=== PATIENT | female | born 1985 | race Caucasian/White ===

== ENCOUNTER 2021-10-06 19:07 | Inpatient (IN) | payer BC ==
[~2021-10-06 19:07] MED LIST: Bupivacaine 0.25% HCL 30 ML VIAL ONE; ePHEDrine Sulfate 50 MG/10 ML VIAL ONE
[2021-10-06 19:37] VITALS: BMI 48.4
[2021-10-06] MEDS ORDERED: Lidocaine 1% (PF) 30 ML VIAL SC PRN (20:36)
[2021-10-06] MEDS ORDERED: Diphenoxylate HCl/Atropine Tablet PO PRN (20:36)
[2021-10-06] MEDS ORDERED: hydrALAZINE 20 MG/ML VIAL SLOW IVP PRN (20:36)
[2021-10-06] MEDS ORDERED: HYDROcodone/Acetaminophen 5/325 mg Tablet PO PRN (20:36)
[2021-10-06] MEDS ORDERED: Misoprostol 200 MCG TAB PR PRN (20:36)
[2021-10-06] MEDS ORDERED: Ibuprofen 800 MG TAB PO PRN (20:36)
[2021-10-06] MEDS ORDERED: Methylergonovine 0.2 MG/ML VIAL IM PRN (20:36)
[2021-10-06] MEDS ORDERED: Acetaminophen 500 MG TAB PO PRN (20:36)
[2021-10-06] MEDS ORDERED: Butorphanol Tartrate 1 MG/ML VIAL SLOW IVP PRN (20:36)
[2021-10-06] MEDS ORDERED: Promethazine HCl 25 MG/ML VIAL IM PRN (20:36)
[2021-10-06] MEDS ORDERED: Ondansetron PF 4 MG/2 ML Vial IVP PRN (20:36)
[2021-10-06] MEDS ORDERED: Carboprost 250 MCG/ML AMP IM PRN (20:36)
[2021-10-06] MEDS ORDERED: Lactated Ringer's 1,000 ML IV SCH (20:45)
[2021-10-06] MEDS ORDERED: NS w/ Oxytocin 30 units 500 ML IV SCH ×2 (20:45)
[2021-10-06] MEDS ORDERED: Penicillin G Potassium 5 MILL.UNITS in Sodium Chloride 0.9% 100 ML IVPB SCH (20:45)
[2021-10-06 20:55] LABS: Hemoglobin 12.8 g/dL (12.0-15.5); Mean Corpuscular HGB CONC 34.5 g/dL (32.0-36.0); Mean Corpuscular Hemoglobin 31.1 pg (27.0-33.0); Mean Corpuscular Volume 90.3 fl (81.6-98.3); Mean Platelet Volume 10.5 fl (7.4-10.4); Platelet Count 203 10x3/uL (150-450); RBC Distribution Width 14.6 % (11.5-14.5); Red Blood Cell (RBC) Count 4.11 10x6/uL (3.90-5.03); White Blood Cell (WBC) Count 8.9 10x3/uL (3.5-10.5)
[2021-10-06 21:07] LABS: ALT (SGPT) 9 U/L (8-55); AST (SGOT) 13 U/L (5-34); Alkaline Phosphatase 131 U/L (40-110); Anion Gap 14 mmol/L (10-20); BUN (Urea Nitrogen) 12 mg/dL (7.0-18.7); Bilirubin, Total 0.3 mg/dL (0.2-1.2); Calc. Creatinine Clearance 235 mL/min (70-130); Calcium 8.8 mg/dL (7.8-10.44); Carbon Dioxide 20 mmol/L (22-29); Chloride 103 mmol/L (98-107); Estimated GFR 121; Globulin 2.6 g/dL (2.4-3.5); Glucose 95 mg/dL (70-105); Protein, Total 5.6 g/dL (6.0-8.3); Sodium 133 mmol/L (136-145)
[2021-10-06 21:25] LABS: Hep B Surf Ag Non-Reactive S/CO (NonReactive); Syphilis Antibody Nonreactive (Nonreactive); Syphilis Antibody Index 0.04 S/CO (<1.00 Non-Reactive)
[2021-10-06 21:36] LABS: HBSAg Index 0.15 S/CO (0-0.99)
[2021-10-06 21:55] LABS: SARS-CoV-2 NAA Rapid Test Not Detected (NotDetected)
[2021-10-07] MEDS: Penicillin G 2.5 MILL.units 2.5 MILL.UNITS in Premix Bag 1 BAG IVPB SCH ×2 (01:04→05:09)
[2021-10-07] MEDS: Misoprostol 100 MCG TAB VAG SCH ×3 (07:56→14:32)
[2021-10-07] MEDS ORDERED: Misoprostol 100 MCG TAB PO SCH (18:00)
[2021-10-08] MEDS ORDERED: Penicillin G Potassium 5 MILL.UNITS VIAL ONE (01:04)
[2021-10-08] MEDS ORDERED: Fentanyl 2 mcg/Bup 0.1% Cadd 100 ML ONE (02:30)
[2021-10-08] MEDS ORDERED: Naloxone HCl 0.4 mg/ml Vial IVP PRN ×2 (03:56)
[2021-10-08] MEDS ORDERED: Acetaminophen 325 MG TAB PO PRN (03:56)
[2021-10-08] MEDS ORDERED: Promethazine HCl 25 MG/ML VIAL IM PRN (03:56)
[2021-10-08] MEDS ORDERED: ePHEDrine Sulfate 50 MG/10 ML VIAL SLOW IVP PRN (03:56)
[2021-10-08] MEDS ORDERED: Lactated Ringer's 500 ML IV PRN (03:56)
[2021-10-08] MEDS ORDERED: Moisturizing Cream (Eucerin) 113 GM JAR TOP PRN (03:56)
[2021-10-08] MEDS ORDERED: diphenhydrAMINE 50 MG/ML VIAL IVP PRN (03:56)
[2021-10-08] MEDS ORDERED: Ondansetron PF 4 MG/2 ML Vial IVP PRN ×2 (03:56→18:17)
[2021-10-08] MEDS ORDERED: Communication Order-Pharmacy FS SCH (04:00)
[2021-10-08] MEDS: Penicillin G 2.5 MILL.units 2.5 MILL.UNITS in Premix Bag 1 BAG IVPB SCH ×3 (05:07→13:29)
[2021-10-08] MEDS: Fentanyl 2 mcg/Bupivacaine 0.1% Cassette 100 ML EPIDURAL SCH ×2 (09:37→14:38)
[2021-10-08] MEDS ORDERED: Fleet Enema 133 ML BOT PR PRN (13:47)
[2021-10-08] MEDS ORDERED: Misoprostol 200 MCG TAB ONE (15:42)
[2021-10-08] MEDS ORDERED: Methylergonovine 0.2 MG/ML VIAL ONE (15:43)
[2021-10-08] MEDS ORDERED: Carboprost 250 MCG/ML AMP ONE (15:43)
[2021-10-08] MEDS ORDERED: Lidocaine 1% (PF) 30 ML VIAL ONE (15:54)
[2021-10-08 16:04] LABS: pH (Cord, venous) 7.202 (7.250-7.350)
[2021-10-08] MEDS ORDERED: Lanolin Ointment 7 GM TUBE TOP PRN (18:17)
[2021-10-08] MEDS ORDERED: hydrALAZINE 20 MG/ML VIAL SLOW IVP PRN (18:17)
[2021-10-08] MEDS ORDERED: Boostrix 0.5 ML (Tdap) VIAL IM ONE (18:17)
[2021-10-08] MEDS ORDERED: HYDROcodone/Acetaminophen 5/325 mg Tablet PO PRN (18:17)
[2021-10-08] MEDS ORDERED: Bisacodyl 10 MG SUPP PR PRN (18:17)
[2021-10-08] MEDS ORDERED: diphenhydrAMINE 25 MG CAP PO PRN (18:17)
[2021-10-08] MEDS ORDERED: Milk Of Magnesia 30 ML UDCUP PO PRN (18:17)
[2021-10-08] MEDS ORDERED: Benzocaine-Menthol 82.5 ML CAN TOP PRN (18:17)
[2021-10-08] MEDS ORDERED: Preparation H Ointment 28 GM TUBE PR PRN (18:17)
[2021-10-08] MEDS ORDERED: Ferrous Sulfate 325 MG TAB PO SCH (18:45)
[2021-10-08] MEDS: Ibuprofen 800 MG TAB PO SCH (19:47)
[2021-10-08] MEDS: HYDROcodone/Acetaminophen 5/325 mg Tablet PO PRN (20:10)
[2021-10-08] MEDS: Docusate 100 MG CAP PO SCH (21:30)
[2021-10-08] MEDS ORDERED: Ibuprofen 800 MG TAB PO SCH (22:00)
[2021-10-09] MEDS: HYDROcodone/Acetaminophen 5/325 mg Tablet PO PRN (00:13)
[2021-10-09] MEDS: Ibuprofen 800 MG TAB PO SCH ×3 (04:09→20:34)
[2021-10-09 05:02] LABS: Hemoglobin 10.5 g/dL (12.0-15.5)
[2021-10-09] MEDS: Ferrous Sulfate 325 MG TAB PO SCH ×2 (08:17→18:46)
[2021-10-09] MEDS: Prenatal Vitamin 1 TAB PO SCH (08:21)
[2021-10-09] MEDS: Docusate 100 MG CAP PO SCH ×2 (08:21→20:34)
[2021-10-10] MEDS: Ibuprofen 800 MG TAB PO SCH ×2 (03:34→12:54)
[2021-10-10] MEDS: Ferrous Sulfate 325 MG TAB PO SCH (07:15)
[2021-10-10] MEDS: Misoprostol 100 MCG TAB VAG SCH ×2 (07:16→07:17)
[2021-10-10] MEDS: Penicillin G 2.5 MILL.units 2.5 MILL.UNITS in Premix Bag 1 BAG IVPB SCH ×2 (07:17→07:18)
[2021-10-10 07:31] VITALS: BP 101/62; TEMP 98
[2021-10-10] MEDS: Docusate 100 MG CAP PO SCH (09:50)
[2021-10-10] MEDS: Prenatal Vitamin 1 TAB PO SCH (09:50)
== END 2021-10-10 15:50 | disposition home or self-care (01) | DRG 768 ==
LOC: CSHLD 19:07 → CSHPP 10-08 18:40
PROVIDERS: ADMIT Student in an Organized Health Care Education/Training Program; ATTEND Student in an Organized Health Care Education/Training Program
PROC: 3E0P7VZ Introduction of Hormone into Female Reproductive, Via Natural or Artificial Opening (ICD-10-PCS; 2021-10-07)
PROC: 10D07Z6 Extraction of Products of Conception, Vacuum, Via Natural or Artificial Opening (ICD-10-PCS; principal; 2021-10-08)
PROC: 0DQR0ZZ Repair Anal Sphincter, Open Approach (ICD-10-PCS; 2021-10-08)
PROC: 10907ZC Drainage of Amniotic Fluid, Therapeutic from Products of Conception, Via Natural or Artificial Opening (ICD-10-PCS; 2021-10-08)
DX: O41.03X0 Oligohydramnios, third trimester, not applicable or unspecified (principal); Z37.0 Single live birth; O70.20 Third degree perineal laceration during delivery, unspecified; Z3A.39 39 weeks gestation of pregnancy; Z20.822 Contact with and (suspected) exposure to COVID-19; O99.824 Streptococcus B carrier state complicating childbirth; O24.420 Gestational diabetes mellitus in childbirth, diet controlled; E66.9 Obesity, unspecified; O99.214 Obesity complicating childbirth; Z79.82 Long term (current) use of aspirin; O76 Abnormality in fetal heart rate and rhythm complicating labor and delivery; O32.8XX0 Maternal care for other malpresentation of fetus, not applicable or unspecified; O69.81X0 Labor and delivery complicated by cord around neck, without compression, not applicable or unspecified
CPT/HCPCS: 36415; 36416; 51702; 80053; 82805; 85014; 85018; 85027; 86780; 86850; 86900; 86901; 87340; J2540; J2590; J3490; S0020; U0002